=== PATIENT | female | born 1940 | race Caucasian/White ===

== ENCOUNTER 2016-03-16 13:17 | Outpatient (CLI) | payer MEDICARE, OTHER ==
[~2016-03-16] VITALS: Ht 162.6 cm; Wt 70.9 kg
[2016-03-16 13:25] VITALS: BP 123/77
[2016-03-16] MEDS ORDERED: ASPI-586 PO (13:32)
[2016-03-16] MEDS ORDERED: ACET-2469 PO (13:32)
[2016-03-16 14:13] LABS: BASOPHILS % (AUTO) 0 % (0-10); EOSINOPHILS # (AUTO) 0.1 10^3/uL (0.0-0.3); EOSINOPHILS % (AUTO) 1 % (0-10); LYMPHOCYTES # (AUTO) 2.5 X 10^3 (1.0-4.0); LYMPHOCYTES % (AUTO) 25 % (12-44); MEAN CORPUSCULAR HEMOGLOBIN 30 PG (25-34); MEAN CORPUSCULAR HGB CONC 34 G/DL (32-36); MEAN CORPUSCULAR VOLUME 89 FL (80-99); MEAN PLATELET VOLUME 9.7 FL (7.4-10.4); MONOCYTES # (AUTO) 0.7 X 10^3 (0.0-1.0); MONOCYTES % (AUTO) 7 % (0-12); NEUTROPHILS # (AUTO) 6.5 X 10^3 (1.8-7.8); NEUTROPHILS % (AUTO) 66 % (42-75); PLATELET COUNT 309 10^3/uL (130-400); RED BLOOD COUNT 4.81 10^6/uL (4.35-5.85); RED CELL DISTRIBUTION WIDTH 12.7 % (10.0-14.5); WHITE BLOOD COUNT 9.9 10^3/uL (4.3-11.0)
[2016-03-19] MEDS ORDERED: HYDR-3812 PO (14:47)
[2016-03-19] MEDS ORDERED: DOCU-143 PO (14:47)
== END 2016-03-16 13:45 | disposition home or self-care (01) ==
LOC: PREOP 13:17
PROVIDERS: ATTEND Surgery
DX: Z01.812 Encounter for preprocedural laboratory examination (principal); Z11.2 Encounter for screening for other bacterial diseases; K43.2 Incisional hernia without obstruction or gangrene
CPT/HCPCS: 36415; 85025; 87081

== ENCOUNTER 2016-03-19 12:08 | Day surgery (SDC) | payer MEDICARE, OTHER ==
[~2016-03-19] VITALS: Ht 162.6 cm; Wt 70.9 kg
[~2016-03-19 12:08] MED LIST: ACET-2469 PO; ASPI-586 PO
[2016-03-19] MEDS ORDERED: SODIUM CHLORIDE (ADD-VANTAGE) 250 ML ONE (12:20)
[2016-03-19] MEDS ORDERED: VANCOMYCIN 1 GM ADD-VANTAGE VIAL IV ONE (12:20)
[2016-03-19 12:30] VITALS: BP 137/86
[2016-03-19] MEDS ORDERED: LACTATED RINGERS 1,000 ML IV PRN (12:51)
[2016-03-19] MEDS ORDERED: SCOPOLAMINE 1.5 MG (TRANSDERM-SCOP) PATCH TOP ONE (13:00)
[2016-03-19] MEDS ORDERED: ONDANSETRON 4 MG/2 ML (SDV) Z0FRAN IV ONE (13:00)
[2016-03-19] MEDS ORDERED: FAMOTIDINE 20MG/2ML IV (PEPCID) IV ONE (13:00)
[2016-03-19] MEDS ORDERED: MIDAZOLAM 2 MG/2 ML (VERSED) VIAL ONE (13:34)
[2016-03-19] MEDS ORDERED: fentaNYL INJECTION 100 MCG/2 ML AMP ONE (13:34)
[2016-03-19] MEDS ORDERED: VANCOMYCIN 1 GM/NS 250 ML IVPB IV ONE ×2 (13:45)
--- NOTE | 2016-03-19 13:50 | Progress Note-Pre Operative ---
Pre-Operative Progress Note H&P Reviewed The H&P was reviewed, patient examined and no changes noted. Date H&P Reviewed: Mar 19, 2016 Time H&P Reviewed: 13:50 Pre-Operative Diagnosis: incisional hernia DONAL GONGORA DO Mar 19, 2016 13:50
[2016-03-19] MEDS ORDERED: LIDOCAINE 1% INJ 20 ML (XYLOCAINE) VIAL ONE (14:16)
[2016-03-19] MEDS ORDERED: BUPIVACAINE 0.5% 30 ML (SENSORCAINE) VIAL ONE (14:16)
[2016-03-19] MEDS ORDERED: proPOfol 200 MG/20 ML (DIPRIVAN) VIAL IV ONE (14:36)
[2016-03-19] MEDS ORDERED: ROCURONIUM 50 MG/5 ML (ZEMURON) VIAL IV ONE (14:36)
[2016-03-19] MEDS ORDERED: ONDANSETRON 4 MG/2 ML (SDV) Z0FRAN ONE (14:37)
[2016-03-19] MEDS ORDERED: LACTATED RINGERS 1,000 ML IV ONE (14:37)
[2016-03-19] MEDS ORDERED: NEOSTIGMINE (BLOXIVERZ ) 1 MG/1ML 10 ML VIAL ONE (14:37)
[2016-03-19] MEDS ORDERED: GLYCOPYRROLATE 0.2 MG/ML (ROBINUL) 2 ML VIAL ONE (14:37)
[2016-03-19] MEDS ORDERED: DOCU-143 PO (14:47)
[2016-03-19] MEDS ORDERED: HYDR-3812 PO (14:47)
[2016-03-19] MEDS ORDERED: SEVOFLURANE (ULTANE) 15 ML INHAL SOLN ONE (14:49)
--- NOTE | 2016-03-19 14:50 | Discharge Inst-Simple/Standard ---
Discharge Inst-Standard Discharge Medications New, Converted or Re-Newed RX: RX on Chart Patient Instructions/Follow Up Plan of Care/Instructions/FU: 2-3 weeks Brock Activity as Tolerated: No Discharge Diet: Regular Diet Other Inst to Patient Follow up Appt: Make appointment for 2-3 week. Instructions: No lifting greater than 10 pounds. No strenuous activity. May shower in 24 hours, no tub bath or soaking. Use incentive spirometer at home as directed. No Smoking Skin/Wound Care: You have special glue over incisions, it will fall off on it's own. Symptoms to Report: Appetite Changes, Extremity Discoloration, Numbness/Tingling, Swelling Increased , Bleeding Excessive, Eyesight Changes, Pain Increased, Urine Color Change, Constipation(Persistent), Fever over 101 degree F, Pain/Pressure in chest, Urinating Difficulty, Cough Up/Vomit Blood, Heart Beat Irreg/Pounding, Pain/ Pressure in jaw, Vaginal Bleeding Increase, Cramps in feet or legs, Lightheadedness, Pain/Pressure in shoulder, Diarrhea(Persistent), Memory Changes Suddenly, Questions/Concerns, Weight gain consecutive days, Dizziness/ Fainting, Nausea/Vomiting, Shortness of Breath, Weight gain over 2 pounds If questions or concerns contact your physician Or seek help at emergency department. DONAL GONGORA DO Mar 19, 2016 14:50
--- NOTE | 2016-03-19 14:55 | Progress Note-Post Operative ---
Post-Operative Progess Note Gis Engineer Objohn Nwagwu Pre-Operative Diagnosis incisional hernia Post-Operative Diagnosis same Post-Op Procedure Note Date of Procedure: Mar 19, 2016 Name of Procedure: lap incisional hernia repair Procedure Note/Findings see note Anesthesia Type general Estimated blood loss (mL): DONAL Gallegos DO Mar 19, 2016 14:55
[2016-03-19] MEDS ORDERED: HYDROcodone/APAP 5 MG/325 MG (LORTAB) TAB PO PRN (15:00)
[2016-03-19] MEDS ORDERED: ONDANSETRON 4 MG/2 ML (SDV) Z0FRAN IV PRN (15:15)
[2016-03-19] MEDS ORDERED: PROMETHAZINE INJ 25 MG/ML (PHENERGAN) AMP IV PRN (15:15)
[2016-03-19] MEDS: fentaNYL INJECTION 100 MCG/2 ML AMP IV PRN ×3 (15:17→15:31)
[2016-03-19 16:00] VITALS: BP 115/61
[2016-03-19 16:30] VITALS: BP 129/84
[2016-03-19 17:00] VITALS: BP 129/75
[2016-03-19 17:55] VITALS: BP 129/75
--- NOTE | 2016-03-21 11:45 | OPERATIVE REPORT ---
PROCEDURE PHYSICIAN: DONAL GONGORA DATE OF PROCEDURE: 03/19/2016 PREOPERATIVE DIAGNOSIS: Incisional hernia. POSTOPERATIVE DIAGNOSIS: Incisional hernia. PROCEDURE: Laparoscopic incisional hernia repair using 4.5 Echo Ventralight mesh. SURGEON: Brock. FOOD SAFETY SCIENTIST: Evi Nobles, who assist in retraction, dissection, and closure. ANESTHESIA: General. ESTIMATED BLOOD LOSS: Minimal. COMPLICATIONS: None. INDICATIONS: The patient is a 75-year-old female who had previous colostomy reversal. She developed an incisional hernia in the left lower abdomen that causes discomfort. She understands the risks and benefits and wishes to proceed with procedure. Consent was signed on chart. PROCEDURE: The patient was taken operative suite. She was prepped and draped in sterile fashion. A surgical pause was performed. A 5 mm incision was made in the left upper quadrant Veress needle was inserted in the abdomen and pneumoperitoneum was achieved. Under direct visualization of the laparoscope, 5 mm trocar was then placed. Under direct visualization of the laparoscope, a 12 mm trocar was placed in the right lateral portion of the abdomen lateral to the umbilicus and a 5 mm trocar was placed in the right lower quadrant and a 5 mm trocar was placed in the right upper quadrant. There are some adhesions to the upper midline which cautery scissors were used to take down. At the midline there appears to be a diastases present and a hernia defect in the left lower quadrant. The defect was small defect, hernia contents had already reduced. An Echo 4.5 Ventralight mesh was inserted into the abdomen and grasped through a stab incision at the hernia defect grasped with Vignesh and brought out and the balloon was inflated holding the mesh in proper placement. An outer crown was created using Secure Tack. After this was done circumferentially the balloon was removed and an inner crown was made as well. The 12 mm trocar was then removed. The fascial defect was closed using 0 Vicryl with Endo Close. The abdomen was then desufflated. The trocars were removed. 20 mL of 0.5% Marcaine and 1% lidocaine 50: 50 ratio was used to anesthetize the trocar sites. The skin was then closed using 4-0 Vicryl in a subcuticular fashion and then Gatica set was placed over the incisions. The patient tolerated procedure well without complication. She was taken to recovery room in stable condition. Job ID: [id number] Dictated Date: 03/19/2016 15:58:39 Equipment Maintenance Technician Date: 03/21/2016 11:37:45 / keaton
== END 2016-03-19 17:55 | disposition home or self-care (01) ==
LOC: SDC 12:08
PROVIDERS: ATTEND Surgery
DX: K43.2 Incisional hernia without obstruction or gangrene (principal)

== ENCOUNTER → 2016-09-18 | Outpatient (CLI) | payer MEDICARE ==
[~2016-09-18] MED LIST changes: +DOCU-143 PO; +HYDR-3812 PO
--- NOTE | 2016-09-21 12:46 | Diagnostic Imaging Report ---
EXAMINATION: Bilateral screening mammogram 2D views with tomosynthesis. The current study was also evaluated with a Computer Aided Detection (CAD) system. INDICATION: Screening. PERSONAL HISTORY: No current complaints stated on the questionnaire. COMPARISON: 09/12/2015. FINDINGS: The breasts are composed of scattered fibroglandular densities. Benign-appearing calcifications are seen. Allowing for technique and positional differences, no suspicious change is seen. IMPRESSION: No significant change. ACR BI-RADS Category 2: Benign findings. Result letter will be mailed to the patient. Note: At least 10% of breast cancer is not imaged by mammography. Dictated by: Dictated on workstation # [id number]
== END ==
LOC: RAD 13:10
PROVIDERS: ATTEND Obstetrics & Gynecology
DX: Z12.31 Encounter for screening mammogram for malignant neoplasm of breast (principal)
CPT/HCPCS: 77067

== ENCOUNTER → 2017-09-21 | Outpatient (CLI) | payer MEDICARE ==
[~2017-09-21] MED LIST changes: +ACHD5005 PO; -HYDR-3812 PO
--- NOTE | 2017-09-21 12:08 | Diagnostic Imaging Report ---
INDICATION: Routine screening. Comparison is made with prior exams from 09/18/2016 and 09/12/2015. 2-D and 3-D bilateral screening mammography was performed. The current study was also evaluated with a Computer Aided Detection (CAD) system. FINDINGS: Scattered fibronodular densities are identified bilaterally. Benign parenchymal and vascular calcifications are again noted bilaterally. No spiculated mass or malignant-appearing microcalcifications are seen. The axillae are unremarkable. IMPRESSION: No mammographic features suspicious for malignancy are identified. ACR BI-RADS Category 2: Benign findings. Result letter will be mailed to the patient. Note: At least 10% of breast cancer is not imaged by mammography. Dictated by: Dictated on workstation # [id number]
== END ==
LOC: RAD 09:07
PROVIDERS: ATTEND Obstetrics & Gynecology
DX: Z12.31 Encounter for screening mammogram for malignant neoplasm of breast (principal)
CPT/HCPCS: 77067

== ENCOUNTER → 2018-05-19 | Outpatient (CLI) | payer MEDICARE, OTHER ==
--- NOTE | 2018-05-19 12:36 | Diagnostic Imaging Report ---
INDICATION: SHORTNESS OF AIR COMPARISON: Shortness of air. Dizziness. FINDINGS: Frontal and lateral views of the chest demonstrate normal heart size and pulmonary vascularity. The lungs are clear. There are no signs of infiltrate, pleural effusions or pneumothoraces. The visualized osseous structures show no acute abnormalities. IMPRESSION: 1. No acute process. No signs of infiltrates, effusions or pneumothoraces. Dictated by: Dictated on workstation # [id number]
== END ==
LOC: CARD 12:08
PROVIDERS: ATTEND Family Medicine
DX: R06.02 Shortness of breath (principal); R55 Syncope and collapse
CPT/HCPCS: 71046; 93005

== ENCOUNTER → 2018-09-28 | Outpatient (CLI) | payer MEDICARE, OTHER ==
--- NOTE | 2018-09-28 16:49 | Diagnostic Imaging Report ---
INDICATION: Routine screening. COMPARISON: 09/21/2017 and 09/18/2016. TECHNIQUE: 2D and 3D bilateral screening mammography was performed with CAD. FINDINGS: Scattered fibroglandular densities are identified bilaterally. Benign parenchymal and vascular calcifications are again noted bilaterally. The nodular density with calcifications in the right breast appears stable. No new mass or malignant appearing microcalcifications are seen. The axillae are unremarkable. IMPRESSION: No mammographic features suspicious for malignancy are identified. ACR BI-RADS Category 2: Benign findings. Result letter will be mailed to the patient. Note: At least 10% of breast cancer is not imaged by mammography. Dictated by: Dictated on workstation # [id number]
== END ==
LOC: RAD 14:16
PROVIDERS: ATTEND Family Medicine
DX: Z12.31 Encounter for screening mammogram for malignant neoplasm of breast (principal)
CPT/HCPCS: 77067

== ENCOUNTER → 2019-08-09 | Outpatient (CLI) | payer MEDICARE, OTHER ==
[~2019-08-09] MED LIST changes: -ACET-2469 PO; +ACET-2715 PO
--- NOTE | 2019-08-09 17:01 | Diagnostic Imaging Report ---
US LEFT UPPER EXT [id number] Technique: Targeted ultrasound of the left upper extremity around the level the wrist was performed. Indication: Left wrist mass. Comparison: None available. Findings: The ulnar aspect of the wrist was scanned. At this site, there is a thickening of the extensor carpi ulnaris tendon with potential surrounding edema. These features suggest the tendinitis and/or tendinopathy. No loculated fluid collection to indicate ganglion. 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 Dictated by: Dictated on workstation # [id number]
== END ==
LOC: RAD 12:17
PROVIDERS: ATTEND Family Medicine
DX: M25.432 Effusion, left wrist (principal)
CPT/HCPCS: 76881

== ENCOUNTER → 2019-10-02 | Outpatient (CLI) | payer MEDICARE, OTHER ==
--- NOTE | 2019-10-02 11:51 | Diagnostic Imaging Report ---
INDICATION: Routine screening. COMPARISON: 09/28/2018 and 09/21/2017. TECHNIQUE: 2D and 3D bilateral screening mammography was performed with CAD. FINDINGS: Scattered fibroglandular densities are identified bilaterally. A partially calcified nodule in the central right breast appears stable. There are benign parenchymal and vascular calcifications bilaterally. No new mass or malignant appearing microcalcifications are seen. The axillae are unremarkable. IMPRESSION: No mammographic features suspicious for malignancy are identified. ACR BI-RADS Category 2: Benign findings. Result letter will be mailed to the patient. Note: At least 10% of breast cancer is not imaged by mammography. Dictated by: Dictated on workstation # [id number]
== END ==
LOC: RAD 10:19
PROVIDERS: ATTEND Family Medicine
DX: Z12.31 Encounter for screening mammogram for malignant neoplasm of breast (principal)
CPT/HCPCS: 77063; 77067

== ENCOUNTER → 2020-10-08 | Outpatient (CLI) | payer MEDICARE, OTHER ==
[~2020-10-08] MED LIST changes: -ACET-2715 PO; +ACET-3075 PO
--- NOTE | 2020-10-08 12:36 | Diagnostic Imaging Report ---
INDICATION: Postmenopausal screening. COMPARISON: None FINDINGS: AP lumbar spine: [BMD (g/cm2): 0.840] [T-Score: -3.0] [Z-Score: -1.3] [BMD Previous: na] [BMD % Change: na] LT Hip Neck: [BMD (g/cm2): 0.760] [T-Score: -2.0] [Z-Score: 0.0] LT Hip Total: [BMD (g/cm2):0.927] [T-Score:-0.6] [Z-Score: 1.2] [BMD Previous: na] [BMD % Change: na] RT Hip Neck: [BMD (g/cm2):0.815] [T-Score:-1.6] [Z-Score:0.4] RT Hip Total: [BMD (g/cm2):0.945] [T-score:-0.5] [Z-Score:1.3] [BMD Previous:na] [BMD % Change:na] *Indicates significant change from prior examination based on 95% confidence level. World Health Organization criteria for BMD interpretation classify patients as Normal (T-score at or above -1.0), Osteopenic (T-score between -1.0 and -2.5) or Osteoporotic (T-score at or below -2.5). LIMITATIONS AND MODIFICATION: None. FRACTURE RISK (FRAX SCORE): The ten year probability of (%): Major Osteoporotic Fracture: [15.2] Hip Fracture: [4.3] IMPRESSION: 1. Osteoporosis. 2. Baseline examination. 3. See below National Osteoporosis Foundation guidelines on when to potentially initiate pharmacologic therapy. Based on the National Osteoporosis Foundation Guidelines, pharmacologic treatment should be initiated in any of the following, unless clinical conditions suggest otherwise: * Any patient with prior fragility fracture of the hip or vertebrae. A spine fracture indicates 5X risk for subsequent spine fracture and 2X risk for subsequent hip fracture. * Osteoporosis (T-score <-2.5). * Postmenopausal women and men age 50 and older with low bone mass/osteopenia (T-score between -1.0 and -2.5) by DXA and 10-year major osteoporotic fracture greater than 20% or a 10-year probability of hip fracture greater than 3%. These fracture risks are supplied above in the FRAX score, if applicable. * Clinician judgement and/or patient preferences may indicate treatment for people with 10-year fracture probabilities above or below these levels. Dictated by: Dictated on workstation # [id number]
--- NOTE | 2020-10-08 13:50 | Diagnostic Imaging Report ---
INDICATION: Routine screening. COMPARISON: 10/02/2019 and 09/28/2018. TECHNIQUE: 2D and 3D bilateral screening mammography was performed with CAD. FINDINGS: Scattered fibroglandular densities are identified bilaterally. The benign, partially calcified nodule in the central right breast appears stable. No spiculated mass or malignant-appearing microcalcifications are seen. The axillae are unremarkable. IMPRESSION: No mammographic features suspicious for malignancy are identified. ACR BI-RADS Category 2: Benign findings. Result letter will be mailed to the patient. Note: At least 10% of breast cancer is not imaged by mammography. Dictated by: Dictated on workstation # [id number]
== END ==
LOC: RAD 10:45
PROVIDERS: ATTEND Pediatrics
DX: Z12.31 Encounter for screening mammogram for malignant neoplasm of breast (principal); M81.0 Age-related osteoporosis without current pathological fracture; Z78.0 Asymptomatic menopausal state
CPT/HCPCS: 77063; 77067; 77080

== ENCOUNTER → 2022-10-13 | Outpatient (CLI) | payer MEDICARE ==
--- NOTE | 2022-10-13 17:59 | Diagnostic Imaging Report ---
INDICATION: Postmenopausal state. COMPARISON: 10/08/2020. FINDINGS: AP Spine L2-L4: [BMD (g/cm2): 0.982] [T-Score: -1.8] [Z-Score: 0.0] [BMD Previous: 0.840] [BMD % Change: 16.9*] LT Hip Neck: [BMD (g/cm2): 0.784] [T-Score: -1.8] [Z-Score: 0.3] LT Hip Total: [BMD (g/cm2):0.930] [T-Score:-0.6] [Z-Score: 1.4] [BMD Previous: 0.927] [BMD % Change: 0.3] RT Hip Neck: [BMD (g/cm2):0.821] [T-Score:-1.6] [Z-Score:0.6] RT Hip Total: [BMD (g/cm2):0.939] [T-score:-0.5] [Z-Score:1.5] [BMD Previous:0.945] [BMD % Change:-0.6] *Indicates significant change from prior examination based on 95% confidence level. World Health Organization criteria for BMD interpretation classify patients as Normal (T-score at or above -1.0), Osteopenic (T-score between -1.0 and -2.5) or Osteoporotic (T-score at or below -2.5). LIMITATIONS AND MODIFICATION: Significant curvature and degenerative changes within the lumbar spine again seen. FRACTURE RISK (FRAX SCORE): The ten year probability of (%): Major Osteoporotic Fracture: [15.3] Hip Fracture: [4.2] IMPRESSION: 1. Osteopenia (Low bone mass). 2. Bone mineral density within the lumbar spine has significantly increased from the prior examination, though some of this apparent increase could be artifactual related to degenerative hypertrophic changes. Bone mineral density within the bilateral hips has not significantly changed from the prior exam. 3. See below National Osteoporosis Foundation guidelines on when to potentially initiate pharmacologic therapy. Based on the National Osteoporosis Foundation Guidelines, pharmacologic treatment should be initiated in any of the following, unless clinical conditions suggest otherwise: * Any patient with prior fragility fracture of the hip or vertebrae. A spine fracture indicates 5X risk for subsequent spine fracture and 2X risk for subsequent hip fracture. * Osteoporosis (T-score <-2.5). * Postmenopausal women and men age 50 and older with low bone mass/osteopenia (T-score between -1.0 and -2.5) by DXA and 10-year major osteoporotic fracture greater than 20% or a 10-year probability of hip fracture greater than 3%. These fracture risks are supplied above in the FRAX score, if applicable. * Clinician judgement and/or patient preferences may indicate treatment for people with 10-year fracture probabilities above or below these levels. Dictated by: Dictated on workstation # [id number]
== END ==
LOC: RAD 11:46
PROVIDERS: ATTEND Pediatrics
DX: M81.0 Age-related osteoporosis without current pathological fracture (principal); M85.80 Other specified disorders of bone density and structure, unspecified site
CPT/HCPCS: 77080